=== PATIENT | male | born 1965 | race Caucasian/White ===

== ENCOUNTER 2021-08-19 10:42 | Day surgery (SDC) | payer MEDICARE, MEDICAID ==
[~2021-08-19] VITALS: Ht 180.3 cm; Wt 144.2 kg
[~2021-08-19 10:42] MED LIST: BUDE10.26 IH; ESCI20TA87 PO; FINA5TAB41 PO; LORA-999 PO; LOSA-382 PO; MONT-35 PO; SODIUM CHLORIDE 0.9% 1,000 ML IV ONE; TOPI25 PO
[2021-08-19] MEDS ORDERED: PROPOFOL 1% 20 ML VIAL IVP ONE (10:43)
[2021-08-19] MEDS ORDERED: SODIUM CHLORIDE 0.9% 1,000 ML ONE (11:22)
[2021-08-19 11:35] LABS: COVID AG,FIA SOURCE NASAL SWAB
== END 2021-08-19 15:10 | disposition home or self-care (01) ==
LOC: SURGERY 10:42
PROVIDERS: ATTEND Student in an Organized Health Care Education/Training Program
DX: K62.5 Hemorrhage of anus and rectum (principal); K63.5 Polyp of colon; K31.89 Other diseases of stomach and duodenum; K25.9 Gastric ulcer, unspecified as acute or chronic, without hemorrhage or perforation; K64.8 Other hemorrhoids; G47.33 Obstructive sleep apnea (adult) (pediatric); E11.9 Type 2 diabetes mellitus without complications; G89.29 Other chronic pain; F32.9 Major depressive disorder, single episode, unspecified; Z98.890 Other specified postprocedural states; Z79.899 Other long term (current) drug therapy
CPT/HCPCS: 45380; 43239; 87426; C9803; J2704; J7030; 88305; 88312; 88313